=== PATIENT | male | born 1940 | race Caucasian/White ===

== ENCOUNTER → 2016-09-29 | Outpatient (CLI) | payer MEDICARE, BC | LOC: LAB 10:05 | DX: R73.02 Impaired glucose tolerance (oral) (principal); I10 Essential (primary) hypertension; E78.5 Hyperlipidemia, unspecified ==

== ENCOUNTER → 2018-03-26 | Outpatient (CLI) | payer MEDICARE, BC ==
[2018-03-26 11:03] LABS: EOS # 0.2 (0.04-0.40); EOS % 3.6 % (0.0-4.0); HEMATOCRIT 46.6 % (42.0-52.0); HEMOGLOBIN 15.4 g/dL (13.5-18.0); LYMPH# 1.7 (1.50-4.00); MEAN CELL VOLUME 86 fl (78-100); MEAN CORPUSCULAR HEMOGLOBIN 29 pg (27-31); MEAN CORPUSCULAR HGB CONC 33 g/dL (33-37); MEAN PLATELET VOLUME 9.7 fl (7.4-10.4); MONO # 0.4 (0.20-0.80); NEU # 2.9 (1.40-6.50); PLATELET COUNT 266 K/mm3 (130-400); RED BLOOD COUNT 5.41 M/mm3 (4.20-5.60); RED CELL DISTRIBUTION WIDTH 13.8 % (11.5-14.5); WHITE BLOOD COUNT 5.3 K/mm3 (4.8-10.8)
[2018-03-26 11:11] LABS: ALBUMIN 4.4 g/dL (3.5-5.0); BUN/CREATININE RATIO 10.5 (6.0-26.0); CALCIUM 9.5 mg/dL (8.4-10.2); POTASSIUM 4.3 mmol/L (3.6-5.0); TOTAL BILIRUBIN 0.6 mg/dL (0.2-1.3); TOTAL PROTEIN 8.2 g/dL (6.3-8.2)
== END ==
LOC: VAS 10:06 → LAB 10:06
PROVIDERS: Nurse Practitioner Family
DX: I08.0 Rheumatic disorders of both mitral and aortic valves (principal); R93.1 Abnormal findings on diagnostic imaging of heart and coronary circulation; E03.9 Hypothyroidism, unspecified; E78.5 Hyperlipidemia, unspecified; R73.02 Impaired glucose tolerance (oral); Z12.5 Encounter for screening for malignant neoplasm of prostate; F90.0 Attention-deficit hyperactivity disorder, predominantly inattentive type; K21.9 Gastro-esophageal reflux disease without esophagitis

== ENCOUNTER → 2018-11-22 | Outpatient (CLI) | payer MEDICARE, BC | LOC: LAB 09:11 | DX: E03.4 Atrophy of thyroid (acquired) (principal) ==

== ENCOUNTER → 2019-05-10 | Outpatient (CLI) | payer MEDICARE, BC | LOC: LAB 14:20 | DX: E03.9 Hypothyroidism, unspecified (principal) ==

== ENCOUNTER → 2020-05-05 | Outpatient (CLI) | payer MEDICARE ==
[2020-05-05 14:09] LABS: EOS # 0.2 (0.04-0.40); EOS % 2.6 % (0.0-4.0); HEMATOCRIT 46.4 % (42.0-52.0); HEMOGLOBIN 15.6 g/dL (13.5-18.0); LYMPH# 1.7 (1.50-4.00); MEAN CELL VOLUME 85 fl (78-100); MEAN CORPUSCULAR HEMOGLOBIN 28 pg (27-31); MEAN CORPUSCULAR HGB CONC 34 g/dL (33-37); MEAN PLATELET VOLUME 9.4 fl (7.4-10.4); MONO # 0.4 (0.20-0.80); NEU # 3.9 (1.40-6.50); PLATELET COUNT 267 K/mm3 (130-400); RED BLOOD COUNT 5.49 M/mm3 (4.20-5.60); RED CELL DISTRIBUTION WIDTH 13.7 % (11.5-14.5); WHITE BLOOD COUNT 6.2 K/mm3 (4.8-10.8)
[2020-05-05 14:16] LABS: ALBUMIN 4.3 g/dL (3.4-4.8); POTASSIUM 3.5 mmol/L (3.5-5.1)
[2020-05-05 14:17] LABS: CALCIUM 9.5 mg/dL (8.3-10.5)
[2020-05-05 14:19] LABS: TOTAL PROTEIN 7.7 g/dL (6.2-8.1)
[2020-05-05 14:20] LABS: TOTAL BILIRUBIN 0.7 mg/dL (0.2-1.2)
== END ==
LOC: LAB 13:54
PROVIDERS: Physician Assistant
DX: Z00.00 Encounter for general adult medical examination without abnormal findings (principal); Z12.5 Encounter for screening for malignant neoplasm of prostate; F90.0 Attention-deficit hyperactivity disorder, predominantly inattentive type; K21.9 Gastro-esophageal reflux disease without esophagitis; E78.5 Hyperlipidemia, unspecified; E03.9 Hypothyroidism, unspecified; R73.02 Impaired glucose tolerance (oral); R03.0 Elevated blood-pressure reading, without diagnosis of hypertension

== ENCOUNTER 2021-02-10 20:50 | Emergency (ER) | payer MEDICARE ==
[2021-02-10] MEDS ORDERED: EUTHYROX88 MCG PO (21:03)
[2021-02-10] MEDS ORDERED: PRILOSEC 20MG20 MG PO (21:03)
[2021-02-10 21:22] LABS: BASO # 0.04 (0.02-0.10); HEMATOCRIT 44.5 % (42.0-52.0); HEMOGLOBIN 15.2 g/dL (13.5-18.0); LYMPH# 2.19 (1.50-4.00); MEAN CELL VOLUME 86 fl (78-100); MEAN CORPUSCULAR HEMOGLOBIN 29 pg (27-31); MEAN CORPUSCULAR HGB CONC 34 g/dL (33-37); MEAN PLATELET VOLUME 9.3 fl (7.4-10.4); MONO # 0.46 (0.20-0.80); NEU # 3.99 (1.40-6.50); PLATELET COUNT 243 K/mm3 (130-400); RED BLOOD COUNT 5.19 M/mm3 (4.20-5.60); RED CELL DISTRIBUTION WIDTH 12.9 % (11.5-14.5); WHITE BLOOD COUNT 6.7 K/mm3 (4.8-10.8)
[2021-02-10 21:33] LABS: ALBUMIN 4.3 g/dL (3.4-4.8); POTASSIUM 3.9 mmol/L (3.5-5.1)
[2021-02-10 21:34] LABS: CALCIUM 9.2 mg/dL (8.3-10.5)
[2021-02-10 21:35] LABS: PROTHROMBIN TIME 10.9 SECONDS (9.0-12.0); TOTAL PROTEIN 7.7 g/dL (6.2-8.1)
[2021-02-10 21:37] LABS: TOTAL BILIRUBIN 0.7 mg/dL (0.2-1.2)
[2021-02-10] MEDS ORDERED: GOOD NEIGHBOR325 MG PO (22:21)
[2021-02-10 22:52] VITALS: BP 182/90
[2021-02-10 23:12] LABS: URINE APPEARANCE CLEAR; URINE COLOR YELLOW
[2021-02-10 23:13] LABS: URINE BILIRUBIN NEGATIVE (NEGATIVE); URINE BLOOD NEGATIVE (NEGATIVE); URINE GLUCOSE NEGATIVE (NEGATIVE); URINE KETONE NEGATIVE (NEGATIVE); URINE LEUKOCYTE ESTERASE NEGATIVE (NEGATIVE); URINE NITRATE NEGATIVE (NEGATIVE); URINE PROTEIN(semi-quant) TRACE mg/dL (NEGATIVE); URINE UROBILINOGEN NORMAL (NORMAL); URINE WBC 0-1 /hpf (0-3)
== END 2021-02-10 22:52 | disposition short-term general hospital (02) ==
LOC: ED 20:50
PROVIDERS: Physician Assistant
DX: I63.9 Cerebral infarction, unspecified (principal); E03.9 Hypothyroidism, unspecified; K21.9 Gastro-esophageal reflux disease without esophagitis; Z87.891 Personal history of nicotine dependence; Z79.890 Hormone replacement therapy; Z20.822 Contact with and (suspected) exposure to COVID-19
CPT/HCPCS: Q9967

== ENCOUNTER → 2021-02-17 | Outpatient (CLI) | payer MEDICARE ==
[2021-02-10 22:52] VITALS: BP 182/90
[~2021-02-17] MED LIST: EUTHYROX88 MCG PO; GOOD NEIGHBOR325 MG PO; PRILOSEC 20MG20 MG PO
[2021-02-17 12:09] LABS: BASO # 0.01 (0.02-0.10); HEMATOCRIT 50.2 % (42.0-52.0); HEMOGLOBIN 17.1 g/dL (13.5-18.0); LYMPH# 1.35 (1.50-4.00); MEAN CELL VOLUME 83 fl (78-100); MEAN CORPUSCULAR HEMOGLOBIN 28 pg (27-31); MEAN CORPUSCULAR HGB CONC 34 g/dL (33-37); MEAN PLATELET VOLUME 9.6 fl (7.4-10.4); MONO # 0.83 (0.20-0.80); NEU # 11.41 (1.40-6.50); PLATELET COUNT 355 K/mm3 (130-400); RED BLOOD COUNT 6.02 M/mm3 (4.20-5.60); RED CELL DISTRIBUTION WIDTH 12.4 % (11.5-14.5); WHITE BLOOD COUNT 13.7 K/mm3 (4.8-10.8)
[2021-02-17 12:16] LABS: ALBUMIN 4.2 g/dL (3.4-4.8)
[2021-02-17 12:17] LABS: POTASSIUM 4.4 mmol/L (3.5-5.1)
[2021-02-17 12:18] LABS: CALCIUM 9.4 mg/dL (8.3-10.5)
[2021-02-17 12:19] LABS: TOTAL PROTEIN 7.9 g/dL (6.2-8.1)
[2021-02-17 12:21] LABS: TOTAL BILIRUBIN 1.1 mg/dL (0.2-1.2)
== END ==
LOC: LAB 11:49
PROVIDERS: Physician Assistant
DX: R42 Dizziness and giddiness (principal)

== ENCOUNTER → 2021-03-08 | Outpatient (CLI) | payer MEDICARE | LOC: LAB 10:42 | PROVIDERS: Neurological Surgery | DX: Z01.812 Encounter for preprocedural laboratory examination (principal) ==

== ENCOUNTER → 2021-03-15 | Outpatient (CLI) | payer MEDICARE ==
[2021-03-15 10:27] LABS: ALBUMIN 3.3 g/dL (3.4-4.8); POTASSIUM 4.2 mmol/L (3.5-5.1)
[2021-03-15 10:28] LABS: CALCIUM 8.6 mg/dL (8.3-10.5)
[2021-03-15 10:30] LABS: TOTAL PROTEIN 6.3 g/dL (6.2-8.1)
[2021-03-15 10:31] LABS: TOTAL BILIRUBIN 0.6 mg/dL (0.2-1.2)
[2021-03-15 10:36] LABS: MAGNESIUM 1.62 mg/dL (1.60-2.60)
[2021-03-15 11:30] LABS: ERYTHROCYTE SEDIMENTATION RATE 19 mm/hr (0-20)
[2021-03-15 23:16] LABS: FOLATE (FOLIC ACID) 3.1 ng/mL (2.0-20.0)
[2021-03-16 01:37] LABS: SYPHILIS AB SCREEN w REFLEX Negative (Negative)
[2021-03-16 04:28] LABS: CERULOPLASMIN 32 mg/dL (20-60)
[2021-03-16 13:17] LABS: BASO # 0.02 (0.02-0.10); HEMATOCRIT 49.8 % (42.0-52.0); HEMOGLOBIN 16.1 g/dL (13.5-18.0); LYMPH# 1.67 (1.50-4.00); MEAN CELL VOLUME 89 fl (78-100); MEAN CORPUSCULAR HEMOGLOBIN 29 pg (27-31); MEAN CORPUSCULAR HGB CONC 32 g/dL (33-37); MEAN PLATELET VOLUME 9.8 fl (7.4-10.4); MONO # 0.38 (0.20-0.80); NEU # 6.15 (1.40-6.50); PLATELET COUNT 186 K/mm3 (130-400); RED BLOOD COUNT 5.63 M/mm3 (4.20-5.60); RED CELL DISTRIBUTION WIDTH 13.5 % (11.5-14.5); WHITE BLOOD COUNT 8.4 K/mm3 (4.8-10.8)
[2021-03-17 15:55] LABS: .COPPER,S 1.15 mcg/mL (())
[2021-03-18 12:51] LABS: VITAMIN E 9.9 mg/L (())
[2021-03-19 09:33] LABS: VITAMIN B1 145 nmol/L (70-180)
== END ==
LOC: RAD 09:28
PROVIDERS: Psychiatry & Neurology Neurology
DX: G93.89 Other specified disorders of brain (principal); G40.209 Localization-related (focal) (partial) symptomatic epilepsy and epileptic syndromes with complex partial seizures, not intractable, without status epilepticus; R53.1 Weakness; Z79.899 Other long term (current) drug therapy

== ENCOUNTER 2021-03-17 12:47 | Outpatient (RCR) | payer MEDICARE | END 2021-06-15 | disposition home or self-care (01) | LOC: PT | DX: G93.89 Other specified disorders of brain (principal); G40.209 Localization-related (focal) (partial) symptomatic epilepsy and epileptic syndromes with complex partial seizures, not intractable, without status epilepticus; Z79.899 Other long term (current) drug therapy ==

== ENCOUNTER → 2021-03-18 | Outpatient (CLI) | payer MEDICARE ==
[2021-03-18 17:08] LABS: HEMATOCRIT 48.1 % (42.0-52.0); HEMOGLOBIN 16.5 g/dL (13.5-18.0); RED BLOOD COUNT 5.79 M/mm3 (4.20-5.60); RED CELL DISTRIBUTION WIDTH 12.5 % (11.5-14.5); WHITE BLOOD COUNT 9.4 K/mm3 (4.8-10.8)
[2021-03-18 17:11] LABS: ALBUMIN 3.4 g/dL (3.4-4.8)
[2021-03-18 17:12] LABS: CALCIUM 8.9 mg/dL (8.3-10.5)
[2021-03-18 17:14] LABS: TOTAL PROTEIN 6.6 g/dL (6.2-8.1)
[2021-03-18 17:15] LABS: TOTAL BILIRUBIN 0.6 mg/dL (0.2-1.2)
== END ==
LOC: LAB 15:49
PROVIDERS: Physician Assistant
DX: G40.209 Localization-related (focal) (partial) symptomatic epilepsy and epileptic syndromes with complex partial seizures, not intractable, without status epilepticus (principal); R73.9 Hyperglycemia, unspecified; Z79.899 Other long term (current) drug therapy

== ENCOUNTER → 2021-04-14 | Outpatient (CLI) | payer MEDICARE ==
[2021-04-14 11:51] LABS: ALBUMIN 3.6 g/dL (3.4-4.8); POTASSIUM 4.2 mmol/L (3.5-5.1)
[2021-04-14 11:52] LABS: CALCIUM 9.5 mg/dL (8.3-10.5)
[2021-04-14 11:53] LABS: TOTAL PROTEIN 6.6 g/dL (6.2-8.1)
[2021-04-14 11:55] LABS: TOTAL BILIRUBIN 0.8 mg/dL (0.2-1.2)
== END ==
LOC: LAB 11:22
PROVIDERS: Physician Assistant
DX: E11.9 Type 2 diabetes mellitus without complications (principal)

== ENCOUNTER → 2021-04-27 | Outpatient (CLI) | payer MEDICARE | LOC: LAB 09:46 | PROVIDERS: Physician Assistant | DX: Z01.812 Encounter for preprocedural laboratory examination (principal) ==

== ENCOUNTER 2021-06-22 11:41 | Outpatient (RCR) | payer MEDICARE | END 2021-08-03 15:50 | LOC: PT 11:41 | DX: G93.89 Other specified disorders of brain (principal); G40.209 Localization-related (focal) (partial) symptomatic epilepsy and epileptic syndromes with complex partial seizures, not intractable, without status epilepticus; R53.1 Weakness; Z79.899 Other long term (current) drug therapy ==

== ENCOUNTER → 2021-07-27 | Outpatient (CLI) | payer MEDICARE | LOC: LAB 11:06 | PROVIDERS: Physician Assistant | DX: Z01.812 Encounter for preprocedural laboratory examination (principal) ==

== ENCOUNTER → 2021-10-03 | Outpatient (CLI) | payer MEDICARE ==
[2021-10-03 09:44] LABS: BASO # 0.02 K/mm3 (0.02-0.10); HEMATOCRIT 38.9 % (42.0-52.0); HEMOGLOBIN 12.6 g/dL (13.5-18.0); LYMPH# 1.74 K/mm3 (1.50-4.00); MEAN CELL VOLUME 86 fl (78-100); MEAN CORPUSCULAR HEMOGLOBIN 28 pg (27-31); MEAN CORPUSCULAR HGB CONC 32 g/dL (33-37); MEAN PLATELET VOLUME 9.1 fl (7.4-10.4); MONO # 0.45 K/mm3 (0.20-0.80); NEU # 3.55 K/mm3 (1.40-6.50); PLATELET COUNT 272 K/mm3 (130-400); RED BLOOD COUNT 4.54 M/mm3 (4.20-5.60); RED CELL DISTRIBUTION WIDTH 15.1 % (11.5-14.5); WHITE BLOOD COUNT 5.8 K/mm3 (4.8-10.8)
[2021-10-03 09:52] LABS: POTASSIUM 3.8 mmol/L (3.5-5.1)
[2021-10-03 09:54] LABS: CALCIUM 9.7 mg/dL (8.3-10.5)
[2021-10-03 09:55] LABS: TOTAL PROTEIN 6.8 g/dL (6.2-8.1)
[2021-10-03 09:57] LABS: TOTAL BILIRUBIN 0.8 mg/dL (0.2-1.2)
== END ==
LOC: LAB 09:10
PROVIDERS: Physician Assistant
DX: Z00.00 Encounter for general adult medical examination without abnormal findings (principal); Z12.5 Encounter for screening for malignant neoplasm of prostate; E78.5 Hyperlipidemia, unspecified; E03.4 Atrophy of thyroid (acquired); E11.9 Type 2 diabetes mellitus without complications; K90.9 Intestinal malabsorption, unspecified

== ENCOUNTER → 2021-11-26 | Outpatient (CLI) | payer MEDICARE ==
[2021-11-26 13:08] LABS: ALBUMIN 4.3 g/dL (3.4-4.8); POTASSIUM 3.9 mmol/L (3.5-5.1)
[2021-11-26 13:11] LABS: TOTAL PROTEIN 7.1 g/dL (6.2-8.1)
[2021-11-26 13:13] LABS: TOTAL BILIRUBIN 0.6 mg/dL (0.2-1.2)
== END ==
LOC: LAB 12:25
PROVIDERS: Nurse Practitioner
DX: E11.49 Type 2 diabetes mellitus with other diabetic neurological complication (principal)

== ENCOUNTER → 2021-12-09 | Outpatient (CLI) | payer MEDICARE ==
[2021-12-09 09:46] LABS: ALBUMIN 4.2 g/dL (3.4-4.8); POTASSIUM 3.7 mmol/L (3.5-5.1)
[2021-12-09 09:48] LABS: TOTAL PROTEIN 6.9 g/dL (6.2-8.1)
[2021-12-09 09:50] LABS: TOTAL BILIRUBIN 0.6 mg/dL (0.2-1.2)
[2021-12-09 09:55] LABS: MAGNESIUM 1.85 mg/dL (1.60-2.60)
== END ==
LOC: LAB 09:02
PROVIDERS: Internal Medicine Adult Congenital Heart Disease
DX: E03.9 Hypothyroidism, unspecified (principal); E78.2 Mixed hyperlipidemia

== ENCOUNTER → 2022-05-26 | Outpatient (CLI) | payer MEDICARE | LOC: RAD 16:23 | DX: C44.329 Squamous cell carcinoma of skin of other parts of face (principal); I67.89 Other cerebrovascular disease ==

== ENCOUNTER → 2023-05-31 | Outpatient (CLI) | payer MEDICARE | LOC: LAB 15:14 | DX: E11.49 Type 2 diabetes mellitus with other diabetic neurological complication (principal) ==

== ENCOUNTER → 2023-06-01 | Outpatient (CLI) | payer MEDICARE ==
[2023-06-01 15:26] LABS: BASO # 0.02 K/mm3 (0.02-0.10); HEMATOCRIT 43.5 % (42.0-52.0); LYMPH# 2.18 K/mm3 (1.50-4.00); MEAN CELL VOLUME 90 fl (78-100); MEAN CORPUSCULAR HEMOGLOBIN 29 pg (27-31); MEAN CORPUSCULAR HGB CONC 32 g/dL (33-37); MEAN PLATELET VOLUME 9.4 fl (7.4-10.4); NEU # 3.08 K/mm3 (1.40-6.50); PLATELET COUNT 229 K/mm3 (130-400); RED BLOOD COUNT 4.85 M/mm3 (4.20-5.60); RED CELL DISTRIBUTION WIDTH 14.4 % (11.5-14.5); WHITE BLOOD COUNT 5.7 K/mm3 (4.8-10.8)
[2023-06-01 15:42] LABS: ALBUMIN 4.2 g/dL (3.4-4.8)
[2023-06-01 15:43] LABS: POTASSIUM 3.8 mmol/L (3.5-5.1)
[2023-06-01 15:44] LABS: CALCIUM 10.4 mg/dL (8.3-10.5)
[2023-06-01 15:45] LABS: TOTAL PROTEIN 7.2 g/dL (6.2-8.1)
[2023-06-01 15:47] LABS: TOTAL BILIRUBIN 0.7 mg/dL (0.2-1.2)
== END ==
LOC: LAB 15:00
DX: Z01.818 Encounter for other preprocedural examination (principal); L98.494 Non-pressure chronic ulcer of skin of other sites with necrosis of bone

== ENCOUNTER → 2023-06-30 | Outpatient (CLI) | payer MEDICARE ==
[2023-06-30 11:56] LABS: BASO # 0.03 K/mm3 (0.02-0.10); HEMATOCRIT 45.8 % (42.0-52.0); HEMOGLOBIN 14.6 g/dL (13.5-18.0); LYMPH# 1.97 K/mm3 (1.50-4.00); MEAN CELL VOLUME 91 fl (78-100); MEAN CORPUSCULAR HEMOGLOBIN 29 pg (27-31); MEAN CORPUSCULAR HGB CONC 32 g/dL (33-37); MEAN PLATELET VOLUME 9.7 fl (7.4-10.4); MONO # 0.42 K/mm3 (0.20-0.80); NEU # 2.47 K/mm3 (1.40-6.50); PLATELET COUNT 255 K/mm3 (130-400); RED BLOOD COUNT 5.04 M/mm3 (4.20-5.60); RED CELL DISTRIBUTION WIDTH 14.1 % (11.5-14.5); WHITE BLOOD COUNT 4.9 K/mm3 (4.8-10.8)
[2023-06-30 15:02] LABS: ALBUMIN 4.5 g/dL (3.4-4.8); POTASSIUM 4.1 mmol/L (3.5-5.1)
[2023-06-30 15:03] LABS: CALCIUM 9.8 mg/dL (8.3-10.5)
[2023-06-30 15:05] LABS: TOTAL PROTEIN 7.6 g/dL (6.2-8.1)
[2023-06-30 15:06] LABS: TOTAL BILIRUBIN 0.6 mg/dL (0.2-1.2)
== END ==
LOC: LAB 11:37
PROVIDERS: Physician Assistant
DX: Z00.00 Encounter for general adult medical examination without abnormal findings (principal); Z12.5 Encounter for screening for malignant neoplasm of prostate; E03.4 Atrophy of thyroid (acquired); H61.23 Impacted cerumen, bilateral; K21.9 Gastro-esophageal reflux disease without esophagitis; E78.5 Hyperlipidemia, unspecified; C80.1 Malignant (primary) neoplasm, unspecified; E11.9 Type 2 diabetes mellitus without complications; R53.83 Other fatigue; R22.0 Localized swelling, mass and lump, head

== ENCOUNTER → 2024-07-16 | Outpatient (CLI) | payer MEDICARE ==
[2024-07-16 14:42] LABS: BASO # 0.04 K/mm3 (0.02-0.10); EOS # 0.01 K/mm3 (0.04-0.40); EOS % 0.1 % (0.0-4.0); HEMATOCRIT 44.6 % (42.0-52.0); HEMOGLOBIN 14.3 g/dL (13.5-18.0); LYMPH# 2.35 K/mm3 (1.50-4.00); MEAN CELL VOLUME 90 fl (78-100); MEAN CORPUSCULAR HEMOGLOBIN 29 pg (27-31); MEAN CORPUSCULAR HGB CONC 32 g/dL (33-37); MEAN PLATELET VOLUME 9.5 fl (7.4-10.4); MONO # 0.58 K/mm3 (0.20-0.80); NEU # 4.18 K/mm3 (1.40-6.50); PLATELET COUNT 261 K/mm3 (130-400); RED BLOOD COUNT 4.94 M/mm3 (4.20-5.60); RED CELL DISTRIBUTION WIDTH 14.4 % (11.5-14.5); WHITE BLOOD COUNT 7.2 K/mm3 (4.8-10.8)
[2024-07-16 14:50] LABS: ALBUMIN 4.3 g/dL (3.4-4.8)
[2024-07-16 14:51] LABS: CALCIUM 10.5 mg/dL (8.3-10.5)
[2024-07-16 14:53] LABS: TOTAL PROTEIN 7.5 g/dL (6.2-8.1)
[2024-07-16 14:54] LABS: TOTAL BILIRUBIN 0.6 mg/dL (0.2-1.2)
[2024-07-16 23:57] LABS: TESTOSTERONE 446 ng/dL (221-716)
== END ==
LOC: LAB 14:24
PROVIDERS: Physician Assistant
DX: Z12.5 Encounter for screening for malignant neoplasm of prostate (principal); E03.4 Atrophy of thyroid (acquired); E78.5 Hyperlipidemia, unspecified; E11.9 Type 2 diabetes mellitus without complications; K90.9 Intestinal malabsorption, unspecified

== ENCOUNTER → 2024-10-22 | Outpatient (CLI) | payer MEDICARE ==
[2024-10-22 10:52] LABS: BASO # 0.02 K/mm3 (0.02-0.10); EOS # 0.02 K/mm3 (0.04-0.40); EOS % 0.4 % (0.0-4.0); HEMATOCRIT 45.1 % (42.0-52.0); HEMOGLOBIN 14.4 g/dL (13.5-18.0); LYMPH# 2.31 K/mm3 (1.50-4.00); MEAN CELL VOLUME 89 fl (78-100); MEAN CORPUSCULAR HEMOGLOBIN 29 pg (27-31); MEAN CORPUSCULAR HGB CONC 32 g/dL (33-37); MEAN PLATELET VOLUME 9.5 fl (7.4-10.4); MONO # 0.33 K/mm3 (0.20-0.80); NEU # 2.63 K/mm3 (1.40-6.50); PLATELET COUNT 237 K/mm3 (130-400); RED BLOOD COUNT 5.05 M/mm3 (4.20-5.60); WHITE BLOOD COUNT 5.3 K/mm3 (4.8-10.8)
[2024-10-22 11:05] LABS: CALCIUM 9.6 mg/dL (8.3-10.5)
== END ==
LOC: LAB 10:41
PROVIDERS: Internal Medicine Interventional Cardiology
DX: I35.0 Nonrheumatic aortic (valve) stenosis (principal)